=== PATIENT | male | born 1960 | race Caucasian/White ===

== ENCOUNTER 2021-08-20 16:44 | Emergency (ER) | payer BC ==
[~2021-08-20 16:44] MED LIST: ECOTRIN81 MG PO; XALATAN OP SOL2.5 ML OU; ZOCOR20 MG PO
[2021-08-20 19:23] LABS: HEMOGLOBIN 14.4 gm/dl (14.0-17.5); RED BLOOD COUNT 4.81 M/UL (4.20-5.50); WHITE BLOOD COUNT 11.2 K/UL (4.5-11.0)
[2021-08-20 19:44] LABS: BUN/CREATININE RATIO 25 (0-10)
[2021-08-20] MEDS ORDERED: CLEOCIN HCL150 MG PO (21:58)
== END 2021-08-20 22:22 | disposition home or self-care (01) ==
LOC: ER1 16:44
PROVIDERS: Physician Assistant
DX: J34.0 Abscess, furuncle and carbuncle of nose (principal)
CPT/HCPCS: 10060; 70487; 80048; 85027; 99284; Q9967